=== PATIENT | male | born 1935 | race Caucasian/White ===

== ENCOUNTER 2019-11-08 16:41 | Emergency (ER) | payer MEDICARE, OTHER ==
[2019-11-08] MEDS: Ondansetron 4 MG/2 ML SDV IVPUSH ONE (17:30)
[2019-11-08] MEDS: Sodium Chloride 0.9% 1,000 ML IV ONE (17:30)
--- NOTE | 2019-11-08 17:38 | EDM.PDOC ---
ED HPI GENERAL MEDICAL PROBLEM - General Chief Complaint: Flank Pain Stated Complaint: kidney stones, dehydration, pain Time Seen by Provider: 11/08/19 16:58 Source of Information: Reports: Patient History Limitations: Reports: No Limitations - History of Present Illness INITIAL COMMENTS - FREE TEXT/NARRATIVE: Pt seen several [facility] Was told had one large stone on the right Has not had follow up On Tramadol and Flomax Increased pain today No fever Onset: Gradual Duration: Day(s):, Getting Worse Location: Reports: Abdomen, Back, Pelvis Quality: Reports: Throbbing Severity: Moderate Right Flank Pain Score (Numeric/FACES): 8 - Related Data Allergies Allergy/AdvReac Type Severity Reaction Status Date / Time No Known Allergies Allergy Verified 11/08/19 16:44 Home Meds: Home Meds Ondansetron [Zofran ODT] 4 mg PO Q6H PRN 11/08/19 [History] Simvastatin 20 mg PO DAILY 11/08/19 [History] Tamsulosin [Tamsulosin 24 Hr] 0.4 mg PO DAILY 11/08/19 [History] predniSONE [Prednisone] 20 mg PO DAILY 11/08/19 [History] traMADol [Ultram] 50 mg PO Q6H PRN 11/08/19 [History] Social & Family History - Tobacco Use Smoking Status *Q: Former Smoker Years of Tobacco use: 25 Packs/Tins Daily: 1 Used Tobacco, but Quit: Yes Month/Year Tobacco Last Used: 1979 - Caffeine Use Caffeine Use: Reports: Coffee - Recreational Drug Use Recreational Drug Use: No ED ROS GENERAL - Review of Systems Review Of Systems: See Below Respiratory: Reports: No Symptoms Cardiovascular: Reports: No Symptoms GI/Abdominal: Reports: Abdominal Pain : Reports: Flank Pain ED EXAM, RENAL/ - Physical Exam Exam: See Below Exam Limited By: No Limitations General Appearance: Alert, WD/WN, Mild Distress GI/Abdominal: Soft, Non-Tender Back Exam: CVA Tenderness (R) Course - Vital Signs Last Recorded V/S: Last Vital Signs Temp 98.1 F 11/08/19 16:42 Pulse 83 11/08/19 16:42 Resp 20 11/08/19 16:42 BP 151/80 H 11/08/19 16:42 Pulse Ox 95 11/08/19 16:42 - Orders/Labs/Meds Orders: Active Orders 24 hr Category Date Time Status Abdomen Pelvis wo Cont [CT] Stat Exams 11/08/19 16:59 Taken Sodium Chloride 0.9% [Normal Saline] 1,000 ml Med 11/08/19 17:21 Active IV .BOLUS Medication Orders Sodium Chloride (Normal Saline) 1,000 mls @ 1,000 mls/hr IV .BOLUS ONE Stop: 11/08/19 18:20 Last Admin: 11/08/19 17:30 Dose: 1,000 mls/hr Meds: Medications Generic Name Dose Route Start Last Admin Trade Name Freq PRN Reason Stop Dose Admin Sodium Chloride 1,000 mls @ 1,000 mls/hr 11/08/19 17:21 11/08/19 17:30 Normal Saline IV 11/08/19 18:20 1,000 mls/hr .BOLUS ONE Administration Discontinued Medications Generic Name Dose Route Start Last Admin Trade Name Freq PRN Reason Stop Dose Admin Ondansetron HCl 4 mg 11/08/19 17:22 11/08/19 17:30 Zofran IVPUSH 11/08/19 17:23 4 mg ONETIME ONE Administration - Re-Assessments/Exams Free Text/Narrative Re-Assessment/Exam: 11/08/19 17:34 CT: Right sided 6 X 8 mm stone in proximal ureter Pt given IVF and IV Zofran in ER Rx Tramadol take home sent with patient 11/08/19 17:36 [facility] On-call contact Pt to call urology clinic in AM Phone number and info given to patient Departure - Departure Time of Disposition: 18:30 Disposition: Home, Self-Care 01 Clinical Impression: Kidney stone on right side - Discharge Information *PRESCRIPTION DRUG MONITORING PROGRAM REVIEWED*: Not Applicable *COPY OF PRESCRIPTION DRUG MONITORING REPORT IN PATIENT IGNACIO: Not Applicable Instructions: Kidney Stones, [id number] Referrals: Mathieu Barrera PA [Primary Care Provider] - Additional Instructions: Call [facility] Urology clinic in AM Rx Tramadol 50 mg One pill very 6 hours for pain Sepsis Event Note - Evaluation Sepsis Screening Result: No Definite Risk - Focused Exam Vital Signs: Vital Signs Temp Pulse Resp BP Pulse Ox 11/08/19 16:42 98.1 F 83 20 151/80 H 95 Date Exam was Performed: 11/08/19 Time Exam was Performed: 17:33 - My Orders Last 24 Hours: My Active Orders 11/08/19 16:59 Abdomen Pelvis wo Cont [CT] Stat 11/08/19 17:21 Sodium Chloride 0.9% [Normal Saline] 1,000 ml IV .BOLUS - Assessment/Plan Last 24 Hours: My Active Orders 11/08/19 16:59 Abdomen Pelvis wo Cont [CT] Stat 11/08/19 17:21 Sodium Chloride 0.9% [Normal Saline] 1,000 ml IV .BOLUS
== END 2019-11-08 18:35 | disposition home or self-care (01) ==
LOC: LL.ED 16:41
DX: N13.2 Hydronephrosis with renal and ureteral calculous obstruction (principal); Z87.891 Personal history of nicotine dependence; Z79.899 Other long term (current) drug therapy
CPT/HCPCS: 74176; 96361; 96374; 99284-25; J2405; J7030